=== PATIENT | male | born 1975 | race Caucasian/White ===

== ENCOUNTER → 2020-07-07 | Outpatient (CLI) | payer BC ==
[~2020-07-07] MED LIST: FEXO1TAB42 PO; HYDR118S10 PO; OXYC-199 PO
--- NOTE | 2020-07-07 14:43 | Diagnostic Imaging Report ---
INDICATION: COVID two weeks ago, now with cough and dyspnea. TIME OF EXAM: 02:39 p.m. COMPARISON: No prior studies are available for comparison. FINDINGS: There is some minimal residual infiltrate or atelectasis in the left base. Otherwise, the lungs are clear. No effusion or pneumothorax is detected. Pulmonary vascularity is unremarkable. IMPRESSION: Minimal left basilar infiltrate or atelectasis. Dictated by: Dictated on workstation # [id number]
[2020-07-07 14:51] LABS: HEMOGLOBIN 15.2 g/dL (13.3-17.7); MEAN PLATELET VOLUME 8.6 fL (9.0-12.2); WHITE BLOOD COUNT 14.7 10^3/uL (4.3-11.0)
[2020-07-07 15:00] LABS: ALBUMIN 3.6 GM/DL (3.2-4.5); CHLORIDE 102 MMOL/L (98-107); POTASSIUM 3.7 MMOL/L (3.6-5.0); SODIUM 137 MMOL/L (135-145)
[2020-07-07 15:02] LABS: CALCIUM 8.5 MG/DL (8.5-10.1)
[2020-07-07 15:03] LABS: GLUCOSE 119 MG/DL (70-105); TOTAL PROTEIN 6.8 GM/DL (6.4-8.2)
[2020-07-07 15:04] LABS: CARBON DIOXIDE 23 MMOL/L (21-32)
[2020-07-07 15:05] LABS: BILIRUBIN,TOTAL 0.5 MG/DL (0.1-1.0)
[2020-07-07 15:06] LABS: ALKALINE PHOSPHATASE 100 U/L (40-136); CREATININE SERUM 1.03 MG/DL (0.60-1.30); GFR ESTIMATED > 60
[2020-07-07 15:08] LABS: BUN/CREATININE RATIO 20
[2020-07-07 15:09] LABS: ALANINE AMINOTRANSFERASE 71 U/L (0-55)
== END ==
LOC: CARD 14:22
PROVIDERS: ATTEND Nurse Practitioner Family
DX: U07.1 COVID-19 (principal); R00.0 Tachycardia, unspecified
CPT/HCPCS: 36415; 71046; 80053; 83605; 85027; 85379; 93005

== ENCOUNTER → 2020-07-29 | Outpatient (CLI) | payer BC | LOC: CARD 13:51 | PROVIDERS: ATTEND Family Medicine | DX: R00.0 Tachycardia, unspecified (principal) | CPT/HCPCS: 93005 ==

== ENCOUNTER 2021-06-23 09:09 | Outpatient (CLI) | payer BC ==
[~2021-06-23] VITALS: Ht 185.5 cm; Wt 97.1 kg
[2021-06-23 09:21] VITALS: BP 163/81
[2021-06-23] MEDS ORDERED: EPINEPHrine INJECTION 1 MG/ML AMP IM PRN (09:30)
[2021-06-23] MEDS ORDERED: diphenhydrAMINE 50 MG/ML INJ (BENADRYL) IV PRN (09:30)
[2021-06-23] MEDS ORDERED: SOTROVIMAB 500 MG/NS 50 ML IVPB IV ONE ×2 (09:30)
[2021-06-23] MEDS ORDERED: ONDANSETRON 4 MG/2 ML (SDV) Z0FRAN IV PRN (09:30)
[2021-06-23] MEDS ORDERED: ACETAMINOPHEN 500 MG TAB (TYLENOL) PO PRN (09:30)
[2021-06-23 10:42] VITALS: BP 152/81
== END 2021-06-23 10:46 | disposition home or self-care (01) ==
LOC: INFUSION 09:09
PROVIDERS: ATTEND Family Medicine
DX: U07.1 COVID-19 (principal)

== ENCOUNTER → 2021-06-28 | Outpatient (CLI) | payer BC ==
--- NOTE | 2021-06-28 11:15 | Diagnostic Imaging Report ---
INDICATION: URINARY FREQUENCY TECHNIQUE: Multiple real-time grayscale sonographic images were obtained of the kidneys. CORRELATION: None FINDINGS: RIGHT KIDNEY: 10.9 x 5.5 x 5.9 cm. There is normal echotexture of the right renal parenchyma. No definitive calcification or hydronephrosis. LEFT KIDNEY: 12.5 x 5.4 x 5.9 cm. There is normal echotexture of the left renal parenchyma. No definitive calcification or hydronephrosis. URINARY BLADDER: There is presence of bilateral ureteral jets. Urinary bladder appearing unremarkable. Prevoid Volume: 182 mL. Postvoid Volume: 0 mL. IMPRESSION: 1. Unremarkable renal sonogram. Dictated by: Dictated on workstation # [id number]
== END ==
LOC: RAD 10:15
PROVIDERS: ATTEND Nurse Practitioner Family
DX: R35.0 Frequency of micturition (principal); Z80.42 Family history of malignant neoplasm of prostate
CPT/HCPCS: 36415; 76770; 84153

== ENCOUNTER 2021-10-05 05:37 | Outpatient (CLI) | payer BC ==
[~2021-10-05] VITALS: Ht 185.4 cm; Wt 96.6 kg
[2021-10-05] MEDS ORDERED: FEXO1TAB97 PO (12:30)
== END 2021-10-05 12:39 | disposition home or self-care (01) ==
LOC: PREOP 05:37
PROVIDERS: ATTEND Surgery
DX: Z01.818 Encounter for other preprocedural examination (principal)

== ENCOUNTER 2021-10-16 07:13 | Day surgery (SDC) | payer BC ==
[~2021-10-16] VITALS: Ht 185.4 cm; Wt 96.6 kg
[2021-10-16] VITALS (7 sets, daily range): BP systolic 126–156; BP diastolic 80–94
[~2021-10-16 07:13] MED LIST changes: +FEXO1TAB97 PO
[2021-10-16] MEDS ORDERED: LACTATED RINGERS 1,000 ML IV STA (07:19)
[2021-10-16] MEDS ORDERED: MIDAZOLAM 2 MG/2 ML (VERSED) VIAL ONE (07:25)
[2021-10-16] MEDS ORDERED: PROPOFOL INJECTION 50 ML IV ONE (07:26)
--- NOTE | 2021-10-16 08:28 | Progress Note-Post Operative ---
Post-Operative Progess Note Surgeon (s)/Antique Finisher (s) Surgeon LEONCIO BENSON DO Antique Finisher: na Pre-Operative Diagnosis screening colonosocpy Post-Operative Diagnosis colon polyps Procedure & Operative Findings Date of Procedure 10/16/21 Procedure Performed/Findings colonoscopy c hot bx polypectomy x 3 Anesthesia Type per application support developer Estimated Blood Loss Estimated blood loss (mL): none Specimens/Packing Specimens Removed colon polyps LEONCIO BENSON DO October 16, 2021 08:28
--- NOTE | 2021-10-16 08:29 | Discharge Inst-Simple/Standard ---
Discharge Inst-Standard Patient Instructions/Follow Up Plan of Care/Instructions/FU: 2 weeks [place] Activity as Tolerated: Yes Discharge Diet: Regular Diet LEONCIO BENSON DO October 16, 2021 08:29
--- NOTE | 2021-10-16 12:29 | OPERATIVE REPORT ---
DATE OF SERVICE: 10/16/2021 PREOPERATIVE DIAGNOSIS: Screening colonoscopy. POSTOPERATIVE DIAGNOSIS: Colon polyps. PROCEDURE: Colonoscopy with hot biopsy polypectomy x3. SURGEON: Leoncio Holm DO ANESTHESIA: Per SHEARER OPERATOR. ESTIMATED BLOOD LOSS: None. COMPLICATIONS: None. INDICATIONS: The patient is a 46-year-old male needing screening colonoscopy. He understands risks and benefits of procedure and wishes to proceed. Consent was signed in the chart. DESCRIPTION OF PROCEDURE: The patient was taken to the endoscopy suite, placed in left lateral recumbent position. Timeout was performed. Digital rectal exam was performed. No palpable polyps, masses or ulcerations. Scope was inserted in the rectum and advanced all the way to cecum with minimal difficulty. Prep was adequate. Scope was slowly retracted back. No polyps, masses or ulcerations in the cecum, ascending colon. In the transverse colon, a small polyp was present, which hot biopsy polypectomy was performed. Scope was then continuously retracted back. No polyps, masses or ulcerations within the remainder of the transverse, descending colon. In the sigmoid colon, two small polyps were present, which hot polypectomy was performed. Scope was then continuously retracted back into the rectum, where it was also retroflexed noting no other pathology. Scope was returned to its normal position, slowly withdrawn until completely removed. The patient tolerated procedure well without any complications, taken to recovery room in stable condition. RECOMMENDATIONS: The patient will need repeat colonoscopy in 5 years. Any issues before that would recommend reevaluation at that time. The patient will also follow up in 2 weeks to discuss pathology results. Job ID: [id number] DocumentID: [id number] Dictated Date: 10/16/2021 08:31:38 Cement Despatch Operator Date: 10/16/2021 12:28:33 Dictated By: LEONCIO HOLM DO
--- NOTE | 2021-10-16 12:55 | Anesthesia-General Post-Op ---
MAC Patient Condition Mental Status/LOC: Same as Preop Cardiovascular: Satisfactory Nausea/Vomiting: Absent Respiratory: Satisfactory Pain: Controlled Complications: Absent Post Op Complications Complications None Follow Up Care/Instructions Patient Instructions None needed. Anesthesiology Discharge Order Discharge Order Patient is doing well, no complaints, stable vital signs, no apparent adverse anesthesia problems. No complications reported per nursing. MATTHEW DALTON CRNA October 16, 2021 12:55
== END 2021-10-16 09:25 | disposition home or self-care (01) ==
LOC: ENDO 07:13
PROVIDERS: ATTEND Surgery
DX: Z12.11 Encounter for screening for malignant neoplasm of colon (principal); K63.5 Polyp of colon
CPT/HCPCS: 88305